=== PATIENT | female | born 1955 | race Caucasian/White ===

== ENCOUNTER 2016-11-14 11:23 | Day surgery (SDC) | payer OTHER ==
[~2016-11-14] VITALS: Ht 157.5 cm; Wt 83.9 kg
[~2016-11-14 11:23] MED LIST: ATEN25TA PO; BIOT50004 PO; BIOTPOW20 PO; DICL75TA PO; DULO1CAP2 PO; FEXO180T58 PO; GABA-279 PO; HYDR12.55 PO; MAGN250T9 PO; MECL-86 PO; MULT1TAB10 PO; PRAV20TA2 PO; PROBCAP4 PO; PROT1TAB2 PO; PROTPAK PO; RANI150T PO; TRAZ-136 PO
[2016-11-14] MEDS ORDERED: CLINDAMYCIN 900 MG in APPROPRIATE DILUENT 1 EA IV ONE (11:30)
[2016-11-14] MEDS ORDERED: LR 1,000 ML IV SCH ×2 (11:30→15:00)
[2016-11-14] MEDS ORDERED: MIDAZOLAM INJ 2 MG/2 ML VIAL (J2250) As Ordered ONE (11:38)
[2016-11-14] MEDS ORDERED: LIDOCAINE 2% INJ 100 MG/5 ML SDV (FOR ANES.) As Ordered ONE (11:38)
[2016-11-14] MEDS ORDERED: NEOSTIGMINE 1MG/ML 5 ML SYRINGE (J2710) As Ordered ONE (11:38)
[2016-11-14] MEDS ORDERED: GLYCOPYRROLATE INJ 0.2 MG/ML 2 ML VIAL As Ordered ONE (11:38)
[2016-11-14] MEDS ORDERED: ROCURONIUM BROMIDE 50 MG/5 ML VIAL/SYRINGE As Ordered ONE (11:38)
[2016-11-14] MEDS ORDERED: ONDANSETRON 4MG/2ML VIAL (J2405) As Ordered ONE (11:38)
[2016-11-14] MEDS ORDERED: PROPOFOL 200 MG/20 ML VIAL As Ordered ONE (11:38)
[2016-11-14] MEDS ORDERED: fentaNYL 100 MCG/2 ML INJECTION (J3010) As Ordered ONE (11:39)
[2016-11-14] MEDS ORDERED: LIDOCAINE 2% W/ EPINEPHRINE 1.7 ML DENTAL INJ As Ordered ONE (13:54)
[2016-11-14] MEDS ORDERED: IBUPROFEN 600 MG TAB PO ONE (14:00)
[2016-11-14] MEDS ORDERED: SUGAMMADEX SODIUM 500 MG/5 ML VIAL (BRIDION) As Ordered ONE (14:35)
[2016-11-14] MEDS ORDERED: ONDANSETRON 4MG/2ML VIAL (J2405) IV PRN (15:00)
[2016-11-14] MEDS ORDERED: PERCOCET 5MG/325MG TAB PO PRN (15:00)
[2016-11-14] MEDS ORDERED: fentaNYL 100 MCG/2 ML INJECTION (J3010) IV PRN (15:00)
[2016-11-14] MEDS ORDERED: HYDROmorphone HCL 1 MG/ML SYRINGE (J1170) IV PRN (15:00)
[2016-11-14 16:20] VITALS: BP 140/63
--- NOTE | 2016-11-15 09:48 | RO ---
DATE OF PROCEDURE: 11/14/2016 PREOPERATIVE DIAGNOSIS: Grossly decayed and hopeless teeth #15, 31, 23, 24, 25, 26. POSTOPERATIVE DIAGNOSIS: Status post the above. PROCEDURE PERFORMED: Extraction of teeth number 15, 31, 23, 24, 25, 26. SURGEON: Brijesh Valenzuela DMD WEBBING TACKER: None. ANESTHESIA: General endotracheal anesthesia via oral RODRIGUEZ. SPECIMEN: Teeth for gross only. INDICATIONS FOR SURGERY: Mrs. Alves is a pleasant 61-year-old female who presented to my office for evaluation for extraction of the aforementioned six teeth. Radiographic and clinical examination reveals grossly decayed teeth number 15, which is a retained root, as well as decayed tooth #31. In addition to that, periodontally involved and decayed teeth number 23, 24, 25 and 26. All of these teeth were symptomatic, according to the patient. A discussion was made with the patient regarding the anesthesia for the procedure. We discussed light IV conscious sedation in the office; however, due to her high anxiety, the patient elected to be completely put to sleep with general anesthesia. Therefore, she elected to have the procedure done in an operating room setting. A complete history and physical was performed and is in the patient's chart, as well as a complete informed consent, which was went over with the patient at length and was signed by her and myself. DESCRIPTION OF PROCEDURE: On November 14, 2016, the patient presented to [facility]. Any last minute questions were addressed. History and physical and the consent were updated. At that point, the patient was taken back to that the operating room. She was laid supine on the operating room table. Ulnar nerve protectors were placed. Noninvasive cardiac monitors were applied. At that point, the patient underwent general anesthesia, and she was intubated with an oral RODRIGUEZ. This was followed by a time-out procedure, which was performed to identify the patient, the procedure and any other precautions. At this point, the patient was prepped and draped in the usual sterile fashion and was given preoperative antibiotics in the IV. The procedure began with the insertion of a moist oral throat pack, followed by the administration of 2% lidocaine with 1:100,000 epinephrine as mandibular blocks and local infiltration around the teeth. At this point, routine elevator and forceps extraction of teeth number 15, 23, 24, 25 and 26 was performed. All the sockets were curetted and irrigated copiously. No sinus exposure was noted and hemostasis was easily achieved with gauze pressure. At this point, attention was then given tooth #31 where the crown fractured upon luxation with forceps. Therefore a full-thickness flap was released in the site of #31. Buccal bone was removed and the remaining segments of the tooth were then sectioned and delivered without any issues. The residual socket was copiously irrigated and suctioned and the flap was then closed with #3-0 chromic sutures. The oral cavity at this point was irrigated and suctioned. The throat pack was removed, and the patient was then awakened from general anesthesia and taken back to the PACU. COMPLICATIONS: None to mention at the time of surgery. ESTIMATED BLOOD LOSS: About 25 mL. DRAINS: There were no drains placed.
== END 2016-11-14 16:30 | disposition home or self-care (01) ==
LOC: M SDC 11:23
PROVIDERS: ATTEND Dentist
DX: K02.9 Dental caries, unspecified (principal); I10 Essential (primary) hypertension; E78.5 Hyperlipidemia, unspecified; E03.9 Hypothyroidism, unspecified; K21.9 Gastro-esophageal reflux disease without esophagitis; Z79.899 Other long term (current) drug therapy
CPT/HCPCS: 88300; D7210; D9223